=== PATIENT | male | born 1945 | race Caucasian/White ===

== ENCOUNTER → 2018-04-27 | Outpatient (CLI) | payer MEDICARE, OTHER ==
--- NOTE | 2018-04-27 13:39 | XR ---
Limited left knee HISTORY: Osteoarthritis 2 views of the left knee correlated to prior exam 10/03/2015 There is no significant interval change. There are dense vascular calcifications present. Suprapatell ar increased density may be due to joint effusion. Possible chondrocalcinosis. IMPRESSION: Osteoarthritis. Consider crystal deposition arthropathy.
== END | disposition home or self-care (01) ==
LOC: RADXRYALE 10:22
PROVIDERS: ATTEND Internal Medicine
DX: M17.12 Unilateral primary osteoarthritis, left knee (principal)

== ENCOUNTER → 2020-03-15 | Outpatient (CLI) | payer MEDICARE ==
--- NOTE | 2020-03-15 13:44 | CT ---
EXAMINATION TYPE: CT thoracic spine wo con DATE OF EXAM: 03/15/2020 COMPARISON: None HISTORY: 74-year-old male Spondylosis and mid back pain. TECHNIQUE: Contiguous axial scanning of the thoracic spine without IV contrast. Coronal and sagittal reconstructions performed. CT DLP: 2376 mGycm Automated exposure control for dose reduction was used. FINDINGS: INCIDENTAL: -Extensive coronary artery calcifications. -Ectatic upper descending thoracic aorta at 3.2 cm. -Pulmonary arterial hypertension with the right and left main pulmonary arteries measuring up to 2.9 cm. -At least moderate emphysema. More moderate to advanced in the upper lungs. -Spiculated posterior left upper lobe mass measuring at least 2.3 cm. -Spiculated superior segment right lower lobe mass measuring 3.6 x 2.2 cm. -Lobulated 5.7 x 3.8 cm lesion interposed between the right adrenal gland and right kidney, possible exophytic renal cyst or lymphangioma. -Likely left renal cysts are suspected measuring 2.6 cm, 2.1 cm, and 2.1 cm. Moderate atherosclerotic calcifications abdominal aorta with infrarenal abdominal aortic aneurysm amee suring up to 3.8 cm. THORACIC SPINE: There is some degenerative interbody ankylosis at L1-L2. Severe degenerative disc disease in the mitchell [place]vy of the visualized upper lumbar spine. Partial interbody ankylosis at T10-T11. Bridging anterior endplate spondylosis extending from T6 through T12 levels. Hypertrophic facet arthropathy lower thoracic spine. Spinal stimulator lead enters the left L1-L2 interlaminar space with a rate centered along the mid to lower spinal canal. Vertebral body heights are preserved. Grade 1 retrolisthesis at T12-L1, L2-L3, and L3-L4. Moderate to advanced degenerative disc disease mid to lower thoracic spine and visualized upper lumba r spine. Suspect at least mild, possible moderate spinal canal stenosis at T11-T12 secondary to disc osteophyt e complex and thickened ligamentum flavum. Suspect mild spinal canal stenosis at T10-11 secondary to disc osteophyte complex. Disc osteophyte complex also at T4-T5 probably causing mild narrowing of the spinal canal. On the left, moderate to severe neuroforaminal stenosis at L1-L2 and L3-L4. At least moderate neural foraminal stenosis at T10-T11 and mild at T9-T10. On the right, moderate to severe neuroforaminal stenosis at L1-L2 and L2-L3 and L3-L4. At least moder ate at T12-T11 and mild at multiple additional levels in the lower thoracic spine. Vertebral body heights are preserved. IMPRESSION: 1. Incidental: COPD with moderate to advanced emphysema and at least 2 left-sided masses measuring up to 3.6 cm. Lung cancer should be excluded. 2. Incidental: CAD and pulmonary arterial hypertension. Lobulated 5.7 cm lesion between the right adr enal gland and right kidney, possible exophytic renal cyst or lymphangioma. 3. DISH within the mid and lower thoracic spine extending down to the T12 level. Grade 1 retrolisthes is at T12-L1, L2-L3, L3-L4. 4. Moderate degenerative disc disease mid to lower thoracic spine with scattered facet arthropathy. 5. At least mild, possible moderate spinal canal stenosis at T11-T12 secondary to discussed by comple x and ligamentum flavum thickening. Likely mild spinal canal stenosis at T4-T5 and T10-T11. 6. Variable moderate and severe neuroforaminal stenoses in the lower thoracic and upper lumbar spine as above. 7. Severe degenerative disc disease visualized upper lumbar spine.
== END | disposition home or self-care (01) ==
LOC: RADCTMAIN 12:19
PROVIDERS: ATTEND Physical Medicine & Rehabilitation
DX: M51.34 Other intervertebral disc degeneration, thoracic region (principal); M48.061 Spinal stenosis, lumbar region without neurogenic claudication; M51.36 Other intervertebral disc degeneration, lumbar region; M47.817 Spondylosis without myelopathy or radiculopathy, lumbosacral region; M54.16 Radiculopathy, lumbar region; M54.5 Low back pain; M47.814 Spondylosis without myelopathy or radiculopathy, thoracic region
CPT/HCPCS: 72128